=== PATIENT | female | born 1940 | race Caucasian/White ===

== ENCOUNTER 2017-01-22 07:14 | Emergency (ER) | payer MEDICARE, OTHER ==
--- NOTE | ~2017-01-22 | EHP ---
ER History and Physical [place] [id number] [facility] [place]. [address] NAME: STANLEY DONNELLY MARCH : 44 STATUS : [facility] ER PAT#: [id number] AGE: 76 ADM/REG DATE : 01/22/17 MR#: [id number] REPORT SERV DATE: 01/29/17 DICTATED BY: ANASTASIA EMMANUEL DATE: 01/28/17 REPORT STATUS : Draft TRANSCRIBED BY: EDUARDO DATE: 01/28/17 CHIEF COMPLAINT: "Cannot eat, chokes on water, esophagus and stomach pain." HISTORY OF PRESENT ILLNESS: This is a 76-year-old female, who states she has had ongoing problems with her stomach, hurts to eat, hurts to swallow, has had no treatment for this current problem, although has seen her primary care physician, who recommended she start [id number] either Pepcid, Zantac, or one of the H2 blockers. She said she started Zantac and has not had any change. She has been desiring to see a animal care attendant and a surgeon; the surgeon because she has a periumbilical hernia, the animal care attendant because of this ongoing problem, but has not gotten the referral yet and she says everything she eats causes her discomfort or pain. PAST MEDICAL HISTORY: She has had no surgeries and she takes no regular medications. REVIEW OF SYSTEMS: Significant for abdominal pain, nausea, reflux like symptoms, otherwise unremarkable. PHYSICAL EXAMINATION: GENERAL: This is an alert and oriented white female, in no acute distress. VITAL SIGNS: Blood pressure is 137/93, pulse 92, respiratory rate 20, sats 97%, temperature is 97.8. HEENT: Completely within normal limits. Her mucosa is moist. No erythema. LUNGS: Clear to auscultation. No wheezing, rales, or rhonchi. HEART: Regular rate and rhythm. No murmurs, gallops, or rubs. ABDOMEN: Bowel sounds are normal, soft. She has mild epigastric tenderness. No guarding, rebound, mass. No lower quadrant tenderness. No CVA tenderness. : Exam is within normal limits. SKIN: Normal turgor. No rashes. No lymphedema. The patient was given a GI cocktail, Carafate, Levsin and she was symptomatically improved and wanted to go and pursue seeing the GI doctor and the surgeon, did not need any further testing, was comfortable with discharge. DIAGNOSIS: Abdominal pain, improved. Differential is ulcers or reflux. PLAN: Prescription for Levsin and Carafate, have her continue her H2 rena and call GI as discussed. QUAN/EDUARDO NICO Juarez / [id number] ER History and Physical [address] [place]. [address] NAME: STANLEY DONNLELY MARCH : 44 STATUS : [facility] ER PAT#: [id number] AGE: 76 ADM/REG DATE : 01/22/17 MR#: [id number] REPORT SERV DATE: 01/29/17 DICTATED BY: ANASTASIA EMMANUEL DATE: 01/28/17 REPORT STATUS : Draft TRANSCRIBED BY: EDUARDO DATE: 01/28/17 CC: Tremaine Durant M.D.
[~2017-01-22 07:14] MED LIST: AMLODIPINE PO; ASAB PO; ATV1 PO; B121000P IM; BENIFIBER; BENTYL10 PO; CYTO5 PO; FISH-EPA1000 MG PO; FORTAMET500 MG PO; GLUCPH PO; IRON160 MG PO; LEVOTHROID150 MCG PO; LEVOTHYROXIN137 MCG PO; LEVOTHYROXIN150 MCG PO; LEVSINTAB PO; MIRALAXPKT PO; MOBIC7.5 PO; NEUR300 PO; NEXIUM40 PO; NORV5 PO; NUIRONCAP PO; PARAFON FORTE500 MG OR; PCET PO; PRAVACHOL40 MG PO; PRILO PO; PROMEGA PO; REST15 PO; SYSTANE ULTR OP; ULTRAM50 PO; VITC500 PO; ZANTAC150 MG PO; ZIAC5 PO
[2017-06-20] MEDS ORDERED: BENEFIBER (14:00)
[2017-06-20] MEDS ORDERED: BETAMETHASONE TOP (14:00)
[2017-06-20] MEDS ORDERED: K250 PO (14:01)
[2017-06-20] MEDS ORDERED: CLORTIMAZOLE EX (14:02)
== END 2017-01-22 07:18 | disposition home or self-care (01) ==
LOC: ER 07:14
DX: R10.13 Epigastric pain (principal); Z88.1 Allergy status to other antibiotic agents; Z88.8 Allergy status to other drugs, medicaments and biological substances; Z79.82 Long term (current) use of aspirin; Z79.899 Other long term (current) drug therapy
CPT/HCPCS: 99283; A9270-GY